=== PATIENT | male | born 1975 | race Two or more races ===

== ENCOUNTER 2020-01-07 19:58 | Inpatient (IN) | payer MEDICAID ==
[~2020-01-07] VITALS: Ht 172.7 cm; Wt 80.3 kg
[2020-01-07] MEDS ORDERED: Adenosine 6mg/2ml Inj ONE ×3 (20:10→20:18)
[2020-01-07 20:15] VITALS: BP_SYST 107; BP_SYST 95; BP_DIAS 72; BP_DIAS 75
--- NOTE | 2020-01-07 20:15 | NUR ---
ED Nurse Note: patient ambulated with c/o chest pain radiating to throat x 1944. ekg at triage svt at 191. hx of mi. denies stents or meds. pt brought in to room, placed on cardioversion pads, ERMD at bedside, ekg done showing SVT, Dilshad contreras inserting IV into L AC
--- NOTE | 2020-01-07 20:20 | NUR ---
ED Nurse Note: Pt given 6mg, 12mg then another 12mg adenosine IV push per ERMD order. BP 95/72, HR 182 at 2024 pt given 10mg etomidate per ERMD order then cardioverted x1, pt tolerated well, 127/79 bp, rr 13 SPO2 98% ON ra, hr 100
[2020-01-07 20:44] LABS: BASOPHILS % (AUTO) 1.1 % (0.0-2.0); EOSINOPHILS % (AUTO) 4.3 % (0.0-3.0); HEMATOCRIT 48.3 % (42.0-52.0); LYMPHOCYTES % (AUTO) 43.9 % (20.0-45.0); MEAN CORPUSCULAR VOLUME 93 FL (80-99); MONOCYTES % (AUTO) 9.5 % (1.0-10.0); NEUTROPHILS % (AUTO) 41.2 % (45.0-75.0); PLATELET COUNT 283 K/UL (150-450); RED BLOOD COUNT 5.22 M/UL (4.70-6.10); RED CELL DISTRIBUTION WIDTH 11.4 % (11.6-14.8); WHITE BLOOD COUNT 10.8 K/UL (4.8-10.8)
[2020-01-07] MEDS ORDERED: Adenosine 6mg/2ml Inj IVP ONE ×3 (20:45)
[2020-01-07] MEDS ORDERED: Etomidate 40mg/20ml Inj IV ONE (20:45)
--- NOTE | 2020-01-07 20:59 | Emergency Room Report ---
History of Present Illness General Chief Complaint: Chest Pain Source: Patient, Family Member Present Illness HPI Disclaimer: Please note that this report is being documented using DRAGON technology. This can lead to erroneous entry secondary to incorrect interpretation by the dictating instrument. HPI: 44-year-old male history of RI and hypertension presents for evaluation of chest pain. Symptoms began abruptly at 7:30 PM while he was at rest. Notes a tightness over the chest and shortness of breath. Denies loss of conscious. No diaphoresis, no vomiting. Was in his usual state of health prior to today. He has been compliant with his medications. Denies any alcohol or drug use. Patient found to be in supraventricular tachycardia on triage with a heart rate greater than 190. Taken to her room and immediately evaluated by me and nursing staff. PMH: RI, hypertension PSH: Reviewed Allergies: Denied Social Hx: Denied Allergies: Coded Allergies: No Known Allergies (Unverified , 01/07/20) Nursing Documentation-PMH Past Medical History: No History, Except For Review of Systems All Other Systems: negative except mentioned in HPI Physical Exam Vital Signs Date Time Temp Pulse Resp B/P (MAP) Pulse Ox O2 Delivery O2 Flow Rate FiO2 01/07/20 20:12 97.9 191 26 107/75 (86) 99 Room Air General: Awake and alert, uncomfortable HEENT: NC/AT. EOMI. Cardiovascular: Very tachycardic. S1 and S2 normal. No murmur appreciated Resp: Normal work of breathing. No cough, wheezing or crackles appreciated Abdomen: Abdomen is soft, nondistended. Nontender Skin: Intact. No abrasions, laceration or rash over the exposed skin MSK: Normal tone and bulk. Moving all extremities. No obvious deformity. Neuro: Awake and alert. Mentating appropriately. Procedures Critical Care Time Critical Care Time Total critical care time: Approximately 45 minutes Due to a high probability of clinically significant, life threatening deterioration, the patient required the highest level of preparedness to intervene emergently and I personally spent this critical care time directly and personally managing the patient. This critical care time included obtaining a history, examining the patient, pulse oximetry, ordering and reviewing studies , ordering treatments, evaluating response to treatment and updating management plan as needed, frequent reassessment and discussion with other providers as well as arranging for ultimate disposition. This critical to care time was performed to assess and manage the high probability of life-threatening deterioration that could result in multiorgan failure. This critical care time is separate from the separately billable procedures and treating other patients. Cardioversion Cardioversion: Consent: Emergent Indication: SVT Type: Synchonis Response: Sinus Attempts: One Patient Tolerated: Well Complications: None Procedural Sedation Consent: Emergent Time out called at: 20:21 Pre-Sedation Assessment: Eval. Immed. Prior to Sed, Plan for Sedation Discuss Airway Assessment (Malampati): I Heart: normal Lungs: normal Procedures/Plans: Cardioversion Plan for Moderate Sedation: Other - Etomidate 10 mg ASA Score: I Start Time: 20:21 End Time: 20:24 Post-Sedation Assessment Achieved appropriate procedural sedation with 10 mg of etomidate. Total sedation time approximately 3 minutes. Sedation was for cardioversion indication SVT. Tolerated the procedure well. No hypotension, no hypoxia. Patient was somnolent but arousable after sedation and had full recovery within 10 minutes. Communication: No Apparent Limitation Mental Status: Awake Respiration: Unlabored Skin Condition: WNL Medical Decision Making Diagnostic Impression: Primary Impression: SVT (supraventricular tachycardia) Additional Impression: Amphetamine abuse ER Course This a 44-year-old male with history of RI presenting for evaluation of chest pain beginning abruptly 1 hour prior to arrival. Patient arrives in narrow complex tachycardia with a heart rate greater than 190 consistent with SVT. Initial pressures were stable in the 110 systolic. Patient was given 6 then 12 then 12 mg of adenosine without effect. Heart rate was declining to the mid 90s. Patient was sedated with etomidate and underwent synchronized cardioversion at 120 J with successful conversion to sinus rhythm. Tolerated sedation well is now awake and alert. Chest pain is improving. Blood pressure improved. Labs and x-rays pending. Patient will require admission for further cardiology evaluation. Laboratory Tests Test 01/07/20 20:00 01/07/20 21:35 White Blood Count 10.8 K/UL (4.8-10.8) Red Blood Count 5.22 M/UL (4.70-6.10) Hemoglobin 17.0 G/DL (14.2-18.0) Hematocrit 48.3 % (42.0-52.0) Mean Corpuscular Volume 93 FL (80-99) Mean Corpuscular Hemoglobin 32.6 PG (27.0-31.0) H Mean Corpuscular Hemoglobin Concent 35.3 G/DL (32.0-36.0) Red Cell Distribution Width 11.4 % (11.6-14.8) L Platelet Count 283 K/UL (150-450) Mean Platelet Volume 6.5 FL (6.5-10.1) Neutrophils (%) (Auto) 41.2 % (45.0-75.0) L Lymphocytes (%) (Auto) 43.9 % (20.0-45.0) Monocytes (%) (Auto) 9.5 % (1.0-10.0) Eosinophils (%) (Auto) 4.3 % (0.0-3.0) H Basophils (%) (Auto) 1.1 % (0.0-2.0) Prothrombin Time 9.8 SEC (9.30-11.50) Prothrombin Time INR 0.9 (0.9-1.1) Activated Partial Thromboplast Time 27 SEC (23-33) Sodium Level 142 MMOL/L (136-145) Potassium Level 3.6 MMOL/L (3.5-5.1) Chloride Level 103 MMOL/L (98-107) Carbon Dioxide Level 26 MMOL/L (21-32) Anion Gap 13 mmol/L (5-15) Blood Urea Nitrogen 13 mg/dL (7-18) Creatinine 1.0 MG/DL (0.55-1.30) Estimate Glomerular Filtration Rate > 60 mL/min (>60) Glucose Level 134 MG/DL (74-106) H Calcium Level 9.4 MG/DL (8.5-10.1) Total Bilirubin 0.3 MG/DL (0.2-1.0) Aspartate Amino Transferase (AST) 24 U/L (15-37) Alanine Aminotransferase (ALT) 35 U/L (12-78) Alkaline Phosphatase 87 U/L (46-116) Total Creatine Kinase 205 U/L (26-308) Creatine Kinase MB 2.7 NG/ML (0.0-3.6) Creatine Kinase MB Relative Index 1.3 Troponin I 0.134 ng/mL (0.000-0.056) Pro-B-Type Natriuretic Peptide 919 pg/mL (0-125) H Total Protein 7.7 G/DL (6.4-8.2) Albumin 4.0 G/DL (3.4-5.0) Globulin 3.7 g/dL Albumin/Globulin Ratio 1.1 (1.0-2.7) Urine Color Pale yellow Urine Appearance Clear Urine pH 6 (4.5-8.0) Urine Specific [place] 1.010 (1.005-1.035) Urine Protein 1+ (NEGATIVE) H Urine Glucose (UA) Negative (NEGATIVE) Urine Ketones Negative (NEGATIVE) Urine Blood Negative (NEGATIVE) Urine Nitrite Negative (NEGATIVE) Urine Bilirubin Negative (NEGATIVE) Urine Urobilinogen Normal MG/DL (0.0-1.0) Urine Leukocyte Esterase Negative (NEGATIVE) Urine RBC 0-2 /HPF (0 - 0) H Urine WBC 0-2 /HPF (0 - 0) Urine Squamous Epithelial Cells None /LPF (NONE/OCC) Urine Bacteria Occasional /HPF (NONE) Urine Opiates Screen Negative (NEGATIVE) Urine Barbiturates Screen Negative (NEGATIVE) Phencyclidine (PCP) Screen Negative (NEGATIVE) Urine Amphetamines Screen Positive (NEGATIVE) H Urine Benzodiazepines Screen Negative (NEGATIVE) Urine Cocaine Screen Negative (NEGATIVE) Urine Marijuana (THC) Screen Negative (NEGATIVE) EKG Diagnostic Results EKG Time: 20:07 Rate: tachycardiac Other Impression Narrow complex tachycardia with heart rate 194. Consistent with SVT ASA given to the pt in ED: Yes Rhythm Strip Diag. Results Rhythm Strip Time: 20:07 EP Interpretation: yes Rate: 190s Chest X-Ray Diagnostic Results Chest X-Ray Diagnostic Results : Chest X-Ray Ordered: Yes # of Views/Limited/Complete: 1 View Indication: Chest Pain EP Interpretation: Yes Interpretation: no consolidation, no effusion, no pneumothorax, no acute cardiopulmonary disease Impression: No acute disease Electronically Signed by: Electronically signed by Dr. Scot Carlton Reevaluation Time: 23:13 Last Vital Signs Date Time Temp Pulse Resp B/P (MAP) Pulse Ox O2 Delivery O2 Flow Rate FiO2 01/07/20 20:41 182 01/07/20 20:12 97.9 26 107/75 (86) 99 Room Air Reevaluation Impression Patient recovering well from his sedation and cardioversion. Labs show a slight elevation in his troponin which is expected after his prolonged episode of SVT. He was given aspirin. Patient is also tested positive for amphetamines. Other labs are within normal limits. Patient will be admitted to the ICU for further management. Discussed with cardiology who recommends loading with 0.5 mg digoxin which we will order in the emergency department. Disposition: HOME, SELF-CARE Condition: Serious Scot Carlton MD Jan 07, 2020 20:59
[2020-01-07 21:01] LABS: INR 0.9 (0.9-1.1)
[2020-01-07 21:10] LABS: ANION GAP 13 mmol/L (5-15); BLOOD UREA NITROGEN 13 mg/dL (7-18); CALCIUM 9.4 MG/DL (8.5-10.1); CARBON DIOXIDE 26 MMOL/L (21-32); CHLORIDE 103 MMOL/L (98-107); POTASSIUM 3.6 MMOL/L (3.5-5.1); SODIUM 142 MMOL/L (136-145)
[2020-01-07 21:26] LABS: ALANINE AMINOTRANSFERASE 35 U/L (12-78); ALBUMIN/GLOBULIN RATIO 1.1 (1.0-2.7); ALKALINE PHOSPHATASE 87 U/L (46-116); ASPARTATE AMINO TRANSFERASE 24 U/L (15-37); BILIRUBIN,TOTAL 0.3 MG/DL (0.2-1.0); CKMB 2.7 NG/ML (0.0-3.6); CREATINE KINASE 205 U/L (26-308)
[2020-01-07 21:30] VITALS: BP 104/78
[2020-01-07] MEDS ORDERED: Aspirin Baby 81mg ORAL ONE (22:00)
[2020-01-07 22:45] VITALS: BP 103/77
[2020-01-07] MEDS ORDERED: Digoxin 0.5mg/2ml Inj IVP ONE (22:45)
[2020-01-07 22:54] LABS: APPEARANCE,URINE CLEAR; BILIRUBIN, URINE NEGATIVE (NEGATIVE); COLOR,URINE PALE YELLOW; GLUCOSE, URINE (UA) NEGATIVE (NEGATIVE); KETONES,URINE NEGATIVE (NEGATIVE); LEUKOCYTE ESTERASE ,URINE NEGATIVE (NEGATIVE); NITRITE,URINE NEGATIVE (NEGATIVE); PH,URINE 6 (4.5-8.0); PROTEIN,URINE 1+ (NEGATIVE); UROBILINOGEN,URINE NORMAL MG/DL (0.0-1.0)
[2020-01-07] MEDS ORDERED: ASPIR 8181 MG ORAL (23:10)
--- NOTE | 2020-01-07 23:35 | NUR ---
TRANSFER TO FLOOR: Patient transferred to as ordered, per Dr Novoa. Report given to LANIE Doss. Belongings and medications given to . Family and or S/O informed of transfer.
--- NOTE | 2020-01-07 23:40 | NUR ---
NURSE NOTES: Received pt from ER with Dx SVT, post cardioverted in ER and Adenosine meds been given. CONNECTED TO C MONITOR which showed NSR Bp 99/68, afebrile. 02 sat 98% with room air . heplock left ac patent to flushes and with good blood return. pt was sleepy NO CP nor SOB noted. Relatives at bedside, explained ICU protocol and set up, verbalized understanding.Skin is intact. Will call Dr Novoa for orders.
[2020-01-07 23:45] VITALS: BP 99/68
[2020-01-08] VITALS (22 sets, daily range): BP systolic 80–111; BP diastolic 51–84
--- NOTE | 2020-01-08 00:06 | NUR ---
NURSE NOTES: called Dr Novoa with admission orders , spoke to Dr Hernandez and relayed pts condition , lab reports and vital signs. Md verbalized ,he will put admission orders
[2020-01-08] MEDS ORDERED: Miralax 17gm pkt ORAL PRN (00:15)
[2020-01-08] MEDS ORDERED: Milk of Magnesia 30ml Ud ORAL PRN (00:15)
--- NOTE | 2020-01-08 01:37 | NUR ---
NURSE NOTES: called Dr Hernandez with trending up Troponin 0.188 left messsage to answering service Nancy
--- NOTE | 2020-01-08 02:00 | NUR ---
NURSE NOTES: Spoke to Dr khanna and was aware with pts trending up troponin.
--- NOTE | 2020-01-08 04:00 | NUR ---
NURSE NOTES: Dr khanna was here and evaluated pt. No orders given.
[2020-01-08] MEDS: Heparin 5000 units/ml inj SUBQ SCH ×3 (06:14→22:55)
--- NOTE | 2020-01-08 06:57 | NUR ---
NURSE NOTES: still asleep, No chest pain noted , refused bath this am,vss
--- NOTE | 2020-01-08 07:19 | NUR ---
HAND-OFF: Report given to Macey DELA CRUZ.
--- NOTE | 2020-01-08 07:20 | NUR ---
NURSE NOTES: Received patient from LANIE Doss. Patient admitted to ICU post SVT treated in ER. Patient vital signs stable at this time. BP 101/70, HR 88, SpO2 96% on room air, and RR 16. Patient denies pain or distress at this time. Patient reports exhaustion. Patient alert and oriented to name, place, person, and time. Patient showing sinus rhythm on the ekg monitor tech at this time. Patient has left antecubital 18 gauge peripheral IV that is patent, asymptomatic, and running normal saline at 50mL/hr at this time. Patient skin intact. Patient ambulates to the restroom and has urinal at the bedside. Patient has troponin of 0.188. MD aware. Troponin level is to be checked again this morning. Will follow up with result and notify MD if applicable. Patient bed in low position with bed alarm on and call light in reach at this time. Oral care supplies offered and breakfast tray placed at the bedside. Will continue to monitor.
--- NOTE | 2020-01-08 08:59 | NUR ---
NURSE NOTES: Left message for Dr Novoa group to report critical value of troponin of 0.236. Awaiting call back.
[2020-01-08] MEDS: Docusate 100mg cap ORAL SCH ×2 (09:00→20:45)
--- NOTE | 2020-01-08 09:23 | NUR ---
NURSE NOTES: Received call back from Dr Smart and notified him of troponin level of 0.236. Patient denies chest pain. No new orders received. Received notification that Dr fuentes is now on the case. Called and left message for Dr Fuentes regarding troponin level trending up. Addendum: 01/08/20 at 1104 by Macey Sutherland RN Received call back from Dr Fuentes at 0924. Received order for Stat ECG and 2D echo. Notified Dr Fuentes that 2D echo was performed this morning but result not available dinorah. ECG performed at this time and result relayed to Dr Fuentes. No new orders received.
[2020-01-08] MEDS: Aspirin Baby 81mg ORAL SCH (09:58)
--- NOTE | 2020-01-08 10:28 | Diagnostic Imaging Report ---
Indication: Chest pain Technique: One view of the chest Comparison: none Findings: The heart size is upper limits of normal. There is equivocal minimal pulmonary venous congestion. Lungs and pleural spaces are otherwise clear. There are overlying defibrillator paddles Impression: Equivocal minimal interstitial congestion. Correlate with clinical findings
--- NOTE | 2020-01-08 11:16 | NUR ---
Social Work This Sw received a consult due to substance abuse. 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 Patient denied any SI/HI or depression/anxiety. Patient admitted to taking "uppers (pills)" in order to stay awake three-four times per week. Patient had been hospitalized last August-2018 for the same reason as this one. Patient showing awareness to the health risks involved, stating that he over-took them (taking two at time). Spouse at bedside, explains she has encouraged patient to discontinue using them. Substance abuse resources/meetings provided to patient. Patient expressing he does not feel he requires any further counseling, but planning to discontinue one of his jobs. Patient identifying he is not working for the financial gain, but stating that he believes he has a "work addiction." Spouse working and providing additional income. Therefore, they both express no other financial burdens at this time (their children are all grown, not living at home and financially independent as well). Supportive counseling provided to patient and spouse. No other needs/concerns present at this time.
--- NOTE | 2020-01-08 12:00 | NUR ---
NURSE NOTES: Patient vital signs remain stable at this time. Patient denies pain or distress at this time. Remains oriented to name, place, person, and time. Sinus rhythm on the hall monitor at this time. Left antecubital 18 gauge peripheral IV remains patent, asymptomatic, and running normal saline at 50mL/hr at this time. Patient has troponin of 0.236. MD aware. Repeat ordered for 1400. Will follow up. Patient bed in low position with bed alarm on and call light in reach at this time. Bed straightened up at this time while patient in the restroom. Will continue to monitor.
--- NOTE | 2020-01-08 12:29 | Pulmonolgy Critical Care Note ---
Critical Care - Asmt/Plan Problems: (1) SVT (supraventricular tachycardia) Assessment & Plan: S/P CV 01/07/20 ---> NSR (2) Chest pain (3) NSTEMI (non-ST elevated myocardial infarction) Assessment & Plan: Per pt h/o CAD, previously refused cardiac catheterization (4) Amphetamine abuse Assessment & Plan: Per pt uses upper pills (on IV, no nasal) (5) Tobacco use Assessment & Plan: / PPD Respiratory: monitor respiratory rate Cardiac: continue to monitor HR/BP, other - F/U TTE, trend trops, ASA, statin, F/U cards/EPS recs, ? transfer to cath center Renal: F/U I&O, keep IV fluid Infectious Disease: other - observe off Abx Gastrointestinal: other - Cardiac diet Endocrine: monitor blood sugar Hematologic: monitor H/H Neurologic: keep patient comfortable - Monitor MS Affect: other - Monitor for amphetamind w/draw, consider psych and SW eval Prophylaxis: Heparin - SQ Disposition: keep in ICU - until seen by cards Time Spent (Minutes): 40 Notes Reviewed: other - ER Discussed with: nurses, family member Critical Care - Objective Last 24 Hour Vital Signs Date Time Temp Pulse Resp B/P (MAP) Pulse Ox O2 Delivery O2 Flow Rate FiO2 01/08/20 11:00 74 22 100/69 (79) 96 01/08/20 10:00 94 21 103/64 (77) 98 01/08/20 09:00 74 14 99/68 (78) 97 01/08/20 08:00 97.7 72 17 107/65 (79) 96 01/08/20 08:00 Room Air 01/08/20 08:00 72 01/08/20 07:00 69 13 101/70 (80) 98 01/08/20 04:00 71 01/08/20 04:00 68 01/08/20 04:00 Room Air 01/08/20 00:00 Room Air 01/08/20 00:00 73 01/08/20 00:00 Room Air 01/07/20 23:35 98.1 88 18 103/77 98 Room Air 01/07/20 22:50 77 01/07/20 22:45 98.1 88 18 103/77 98 Room Air 01/07/20 21:30 97.9 89 18 104/78 99 Room Air 01/07/20 20:41 182 01/07/20 20:39 175 01/07/20 20:38 179 01/07/20 20:15 97.9 191 26 107/75 99 Room Air 01/07/20 20:15 191 26 Room Air 01/07/20 20:15 97.9 91 24 98 Room Air 191 97 89 99 90 99 92 01/07/20 20:12 97.9 191 26 107/75 (86) 99 Room Air Status: awake Condition: improving HEENT: atraumatic, normocephalic Lungs: clear Heart: HR/BP stable Abdomen: soft, non-tender, active bowel sounds Extremities: no C/C/E Blood Sugars: BS controlled Critical Care - Subjective ROS Limited/Unobtainable: Yes ICU Day: 2 Intubation Day: N/A Interval Events: 44 M h/o HTN, CAD, prior AL, drug abuse a/w CP, noted to be in SVT in ER S/P CV ---> NSR Utox + amphetamine, CXR with PVC PMH: HTN, CAD (refused angio in the past) PSH: Appy SHx: + 1/2 PPD, no EtOH, uses street amphetamines (pills only per pt) FHx: + CAD Condition: critical IV Access: peripheral EKG Rhythm: Sinus Rhythm FI02: 21 Fluids: NS@50 I&O: Intake and Output 01/07/20 01/08/20 19:00 07:00 Intake Total 250 ml Output Total 0 ml Balance 250 ml Intake Oral 0 ml IV Total 250 ml Output Urine Total 0 ml Subjective: States he is doing better today, no further CP, no FC, no cough, no wheezing, no ADAMS, no dizziness, no NVDC, no abd pain, no urinary complaints CXR: NAD mild PVC Labs: Laboratory Tests Test 01/07/20 20:00 01/07/20 21:35 01/08/20 00:50 01/08/20 07:01 White Blood Count 10.8 K/UL (4.8-10.8) Red Blood Count 5.22 M/UL (4.70-6.10) Hemoglobin 17.0 G/DL (14.2-18.0) Hematocrit 48.3 % (42.0-52.0) Mean Corpuscular Volume 93 FL (80-99) Mean Corpuscular Hemoglobin 32.6 PG (27.0-31.0) H Mean Corpuscular Hemoglobin Concent 35.3 G/DL (32.0-36.0) Red Cell Distribution Width 11.4 % (11.6-14.8) L Platelet Count 283 K/UL (150-450) Mean Platelet Volume 6.5 FL (6.5-10.1) Neutrophils (%) (Auto) 41.2 % (45.0-75.0) L Lymphocytes (%) (Auto) 43.9 % (20.0-45.0) Monocytes (%) (Auto) 9.5 % (1.0-10.0) Eosinophils (%) (Auto) 4.3 % (0.0-3.0) H Basophils (%) (Auto) 1.1 % (0.0-2.0) Prothrombin Time 9.8 SEC (9.30-11.50) Prothromb Time International Ratio 0.9 (0.9-1.1) Activated Partial Thromboplast Time 27 SEC (23-33) Sodium Level 142 MMOL/L (136-145) Potassium Level 3.6 MMOL/L (3.5-5.1) Chloride Level 103 MMOL/L (98-107) Carbon Dioxide Level 26 MMOL/L (21-32) Anion Gap 13 mmol/L (5-15) Blood Urea Nitrogen 13 mg/dL (7-18) Creatinine 1.0 MG/DL (0.55-1.30) Estimat Glomerular Filtration Rate > 60 mL/min (>60) Glucose Level 134 MG/DL (74-106) H Calcium Level 9.4 MG/DL (8.5-10.1) Total Bilirubin 0.3 MG/DL (0.2-1.0) Aspartate Amino Transf (AST/SGOT) 24 U/L (15-37) Alanine Aminotransferase (ALT/SGPT) 35 U/L (12-78) Alkaline Phosphatase 87 U/L (46-116) Total Creatine Kinase 205 U/L (26-308) Creatine Kinase MB 2.7 NG/ML (0.0-3.6) Creatine Kinase MB Relative Index 1.3 Troponin I 0.134 ng/mL (0.000-0.056) 0.188 ng/mL (0.000-0.056) 0.236 ng/mL (0.000-0.056) Pro-B-Type Natriuretic Peptide 919 pg/mL (0-125) H Total Protein 7.7 G/DL (6.4-8.2) Albumin 4.0 G/DL (3.4-5.0) Globulin 3.7 g/dL Albumin/Globulin Ratio 1.1 (1.0-2.7) Urine Color Pale yellow Urine Appearance Clear Urine pH 6 (4.5-8.0) Urine Specific [place] 1.010 (1.005-1.035) Urine Protein 1+ (NEGATIVE) H Urine Glucose (UA) Negative (NEGATIVE) Urine Ketones Negative (NEGATIVE) Urine Blood Negative (NEGATIVE) Urine Nitrite Negative (NEGATIVE) Urine Bilirubin Negative (NEGATIVE) Urine Urobilinogen Normal MG/DL (0.0-1.0) Urine Leukocyte Esterase Negative (NEGATIVE) Urine RBC 0-2 /HPF (0 - 0) H Urine WBC 0-2 /HPF (0 - 0) Urine Squamous Epithelial Cells None /LPF (NONE/OCC) Urine Bacteria Occasional /HPF (NONE) Urine Opiates Screen Negative (NEGATIVE) Urine Barbiturates Screen Negative (NEGATIVE) Phencyclidine (PCP) Screen Negative (NEGATIVE) Urine Amphetamines Screen Positive (NEGATIVE) H Urine Benzodiazepines Screen Negative (NEGATIVE) Urine Cocaine Screen Negative (NEGATIVE) Urine Marijuana (THC) Screen Negative (NEGATIVE) Hemoglobin A1c 5.6 % (4.3-6.0) Parvez Conti MD Jan 08, 2020 12:29
--- NOTE | 2020-01-08 13:50 | Cardiac Electrophysiology PN ---
Subjective Subjective [id number] Objective Last 24 Hour Vital Signs Date Time Temp Pulse Resp B/P (MAP) Pulse Ox O2 Delivery O2 Flow Rate FiO2 01/08/20 12:29 21 01/08/20 12:00 72 18 95/66 (76) 96 01/08/20 12:00 66 01/08/20 11:00 74 22 100/69 (79) 96 01/08/20 10:00 94 21 103/64 (77) 98 01/08/20 09:00 74 14 99/68 (78) 97 01/08/20 08:00 97.7 72 17 107/65 (79) 96 01/08/20 08:00 Room Air 01/08/20 08:00 72 01/08/20 07:00 69 13 101/70 (80) 98 01/08/20 04:00 71 01/08/20 04:00 68 01/08/20 04:00 Room Air 01/08/20 00:00 Room Air 01/08/20 00:00 73 01/08/20 00:00 Room Air 01/07/20 23:35 98.1 88 18 103/77 98 Room Air 01/07/20 22:50 77 01/07/20 22:45 98.1 88 18 103/77 98 Room Air 01/07/20 21:30 97.9 89 18 104/78 99 Room Air 01/07/20 20:41 182 01/07/20 20:39 175 01/07/20 20:38 179 01/07/20 20:15 97.9 191 26 107/75 99 Room Air 01/07/20 20:15 191 26 Room Air 01/07/20 20:15 97.9 91 24 98 Room Air 191 97 89 99 90 99 92 01/07/20 20:12 97.9 191 26 107/75 (86) 99 Room Air Intake and Output 01/07/20 01/08/20 19:00 07:00 Intake Total 250 ml Output Total 0 ml Balance 250 ml Intake Oral 0 ml IV Total 250 ml Output Urine Total 0 ml Laboratory Tests Test 01/07/20 20:00 01/07/20 21:35 01/08/20 00:50 01/08/20 07:01 White Blood Count 10.8 K/UL (4.8-10.8) Red Blood Count 5.22 M/UL (4.70-6.10) Hemoglobin 17.0 G/DL (14.2-18.0) Hematocrit 48.3 % (42.0-52.0) Mean Corpuscular Volume 93 FL (80-99) Mean Corpuscular Hemoglobin 32.6 PG (27.0-31.0) H Mean Corpuscular Hemoglobin Concent 35.3 G/DL (32.0-36.0) Red Cell Distribution Width 11.4 % (11.6-14.8) L Platelet Count 283 K/UL (150-450) Mean Platelet Volume 6.5 FL (6.5-10.1) Neutrophils (%) (Auto) 41.2 % (45.0-75.0) L Lymphocytes (%) (Auto) 43.9 % (20.0-45.0) Monocytes (%) (Auto) 9.5 % (1.0-10.0) Eosinophils (%) (Auto) 4.3 % (0.0-3.0) H Basophils (%) (Auto) 1.1 % (0.0-2.0) Prothrombin Time 9.8 SEC (9.30-11.50) Prothromb Time International Ratio 0.9 (0.9-1.1) Activated Partial Thromboplast Time 27 SEC (23-33) Sodium Level 142 MMOL/L (136-145) Potassium Level 3.6 MMOL/L (3.5-5.1) Chloride Level 103 MMOL/L (98-107) Carbon Dioxide Level 26 MMOL/L (21-32) Anion Gap 13 mmol/L (5-15) Blood Urea Nitrogen 13 mg/dL (7-18) Creatinine 1.0 MG/DL (0.55-1.30) Estimat Glomerular Filtration Rate > 60 mL/min (>60) Glucose Level 134 MG/DL (74-106) H Calcium Level 9.4 MG/DL (8.5-10.1) Total Bilirubin 0.3 MG/DL (0.2-1.0) Aspartate Amino Transf (AST/SGOT) 24 U/L (15-37) Alanine Aminotransferase (ALT/SGPT) 35 U/L (12-78) Alkaline Phosphatase 87 U/L (46-116) Total Creatine Kinase 205 U/L (26-308) Creatine Kinase MB 2.7 NG/ML (0.0-3.6) Creatine Kinase MB Relative Index 1.3 Troponin I 0.134 ng/mL (0.000-0.056) 0.188 ng/mL (0.000-0.056) 0.236 ng/mL (0.000-0.056) Pro-B-Type Natriuretic Peptide 919 pg/mL (0-125) H Total Protein 7.7 G/DL (6.4-8.2) Albumin 4.0 G/DL (3.4-5.0) Globulin 3.7 g/dL Albumin/Globulin Ratio 1.1 (1.0-2.7) Urine Color Pale yellow Urine Appearance Clear Urine pH 6 (4.5-8.0) Urine Specific [place] 1.010 (1.005-1.035) Urine Protein 1+ (NEGATIVE) H Urine Glucose (UA) Negative (NEGATIVE) Urine Ketones Negative (NEGATIVE) Urine Blood Negative (NEGATIVE) Urine Nitrite Negative (NEGATIVE) Urine Bilirubin Negative (NEGATIVE) Urine Urobilinogen Normal MG/DL (0.0-1.0) Urine Leukocyte Esterase Negative (NEGATIVE) Urine RBC 0-2 /HPF (0 - 0) H Urine WBC 0-2 /HPF (0 - 0) Urine Squamous Epithelial Cells None /LPF (NONE/OCC) Urine Bacteria Occasional /HPF (NONE) Urine Opiates Screen Negative (NEGATIVE) Urine Barbiturates Screen Negative (NEGATIVE) Phencyclidine (PCP) Screen Negative (NEGATIVE) Urine Amphetamines Screen Positive (NEGATIVE) H Urine Benzodiazepines Screen Negative (NEGATIVE) Urine Cocaine Screen Negative (NEGATIVE) Urine Marijuana (THC) Screen Negative (NEGATIVE) Hemoglobin A1c 5.6 % (4.3-6.0) Test 01/08/20 12:57 Troponin I 0.213 ng/mL (0.000-0.056) Pee Burks MD Jan 08, 2020 13:50
--- NOTE | 2020-01-08 15:37 | NUR ---
NURSE NOTES: Notified Dr Burks regarding 2D echo of result via telephone call. No new orders received.
--- NOTE | 2020-01-08 16:00 | NUR ---
NURSE NOTES: Patient vital signs remain stable at this time. Patient denies pain or distress at this time. Remains oriented to name, place, person, and time. Sinus rhythm on the night monitor at this time. Left antecubital 18 gauge peripheral IV remains patent, asymptomatic, and running normal saline at 50mL/hr at this time. Patient has troponin of 0.213. MD aware. Repeat ordered for 1999. Will follow up. Patient bed in low position with bed alarm on and call light in reach at this time. Will continue to monitor.
--- NOTE | 2020-01-08 17:13 | General Progress Note ---
Subjective Allergies: Coded Allergies: No Known Allergies (Unverified , 01/07/20) Objective Last 24 Hour Vital Signs Date Time Temp Pulse Resp B/P (MAP) Pulse Ox O2 Delivery O2 Flow Rate FiO2 01/08/20 16:00 Room Air 01/08/20 16:00 97.6 71 13 101/68 (79) 97 01/08/20 16:00 78 01/08/20 15:00 73 14 108/56 (73) 97 01/08/20 14:00 87 19 111/69 (83) 97 01/08/20 13:00 97.7 68 17 108/67 (81) 97 01/08/20 12:29 21 01/08/20 12:00 Room Air 01/08/20 12:00 72 18 95/66 (76) 96 01/08/20 12:00 66 01/08/20 11:00 74 22 100/69 (79) 96 01/08/20 10:00 94 21 103/64 (77) 98 01/08/20 09:00 74 14 99/68 (78) 97 01/08/20 08:00 97.7 72 17 107/65 (79) 96 01/08/20 08:00 Room Air 01/08/20 08:00 72 01/08/20 07:00 69 13 101/70 (80) 98 01/08/20 04:00 71 01/08/20 04:00 68 01/08/20 04:00 Room Air 01/08/20 00:00 Room Air 01/08/20 00:00 73 01/08/20 00:00 Room Air 01/07/20 23:35 98.1 88 18 103/77 98 Room Air 01/07/20 22:50 77 01/07/20 22:45 98.1 88 18 103/77 98 Room Air 01/07/20 21:30 97.9 89 18 104/78 99 Room Air 01/07/20 20:41 182 01/07/20 20:39 175 01/07/20 20:38 179 01/07/20 20:15 97.9 191 26 107/75 99 Room Air 01/07/20 20:15 191 26 Room Air 01/07/20 20:15 97.9 91 24 98 Room Air 191 97 89 99 90 99 92 01/07/20 20:12 97.9 191 26 107/75 (86) 99 Room Air Intake and Output 01/07/20 01/08/20 19:00 07:00 Intake Total 250 ml Output Total 0 ml Balance 250 ml Intake Oral 0 ml IV Total 250 ml Output Urine Total 0 ml Laboratory Tests 01/07/20 20:00: White Blood Count 10.8, Red Blood Count 5.22, Hemoglobin 17.0, Hematocrit 48.3, Mean Corpuscular Volume 93, Mean Corpuscular Hemoglobin 32.6H, Mean Corpuscular Hemoglobin Concent 35.3, Red Cell Distribution Width 11.4L, Platelet Count 283, Mean Platelet Volume 6.5, Neutrophils (%) (Auto) 41.2L, Lymphocytes (%) (Auto) 43.9, Monocytes (%) (Auto) 9.5, Eosinophils (%) (Auto) 4.3H, Basophils (%) (Auto ) 1.1, Prothrombin Time 9.8, Prothromb Time International Ratio 0.9, Activated Partial Thromboplast Time 27, Sodium Level 142, Potassium Level 3.6, Chloride Level 103, Carbon Dioxide Level 26, Anion Gap 13, Blood Urea Nitrogen 13, Creatinine 1.0, Estimat Glomerular Filtration Rate > 60, Glucose Level 134H, Calcium Level 9.4, Total Bilirubin 0.3, Aspartate Amino Transf (AST/SGOT) 24, Alanine Aminotransferase (ALT/SGPT) 35, Alkaline Phosphatase 87, Total Creatine Kinase 205, Creatine Kinase MB 2.7, Creatine Kinase MB Relative Index 1.3, Troponin I 0.134H, Pro-B-Type Natriuretic Peptide 919H, Total Protein 7.7, Albumin 4.0, Globulin 3.7, Albumin/Globulin Ratio 1.1 01/07/20 21:35: Urine Color Pale yellow, Urine Appearance Clear, Urine pH 6, Urine Specific [place] 1.010, Urine Protein 1+H, Urine Glucose (UA) Negative, Urine Ketones Negative, Urine Blood Negative, Urine Nitrite Negative, Urine Bilirubin Negative , Urine Urobilinogen Normal, Urine Leukocyte Esterase Negative, Urine RBC 0-2H, Urine WBC 0-2, Urine Squamous Epithelial Cells None, Urine Bacteria Occasional, Urine Opiates Screen Negative, Urine Barbiturates Screen Negative, Phencyclidine (PCP) Screen Negative, Urine Amphetamines Screen PositiveH, Urine Benzodiazepines Screen Negative, Urine Cocaine Screen Negative, Urine Marijuana (THC) Screen Negative 2/17/20 00:50: Troponin I 0.188H 01/08/20 07:01: Troponin I 0.236H, Hemoglobin A1c 5.6 01/08/20 12:57: Troponin I 0.213H Height (Feet): 5 Height (Inches): 8.00 Weight (Pounds): 178 Mike Ordonez D.O. Jan 08, 2020 17:13
--- NOTE | 2020-01-08 17:16 | History and Physical ---
History of Present Illness General Date patient seen: Jan 08, 2020 Reason for Hospitalization: Chest Pain Present Illness HPI Is a 44-year-old male with a past medical history of substance abuse ( amphetamines), reported history of CA, HTN, coronary artery disease (patient previously refused cardiac catheterization) who presented to the ER with chest pain. Symptoms began abruptly at 7:30 PM while he was at rest. Notes a tightness over the chest and shortness of breath. Denies loss of conscious. No diaphoresis, no vomiting. Was in his usual state of health prior to today. He has been compliant with his medications. Denies any alcohol or drug use. Patient found to be in supraventricular tachycardia on triage with a heart rate greater than 190. Patient arrived in narrow complex tachycardia with a heart rate greater than 190 consistent with SVT. Initial pressures were stable in the 110 systolic. Patient was given 6 then 12 then 12 mg of adenosine without effect. Heart rate was declining to the mid 90s. Patient was sedated with etomidate and underwent synchronized cardioversion at 120 J with successful conversion to sinus rhythm. Tolerated sedation well is now awake and alert. Chest pain is improving. Blood pressure improved. CBC unremarkable initial troponin 0.188, proBNP 919. Rest of CMP unremarkable. Chest x-ray showed pulmonary edema, mild. Medicine was consulted for admission. Patient was admitted to the ICU. Allergies: None next Medications: None Past medical history: See HPI Surgical history: Appendectomy Family history Brother with CVA Dad with CA at 70 years old Social history drug use: Uppers Former drinker Denies tobacco use. Allergies: Coded Allergies: No Known Allergies (Unverified , 01/07/20) Medication History Scheduled Aspirin* (Aspir 81*), 81 MG ORAL DAILY, (Reported) Medications Narrative Patient does not take any home medications Patient History Healthcare decision maker Resuscitation status Full Code Advanced Directive on File No Review of Systems All Other Systems: negative except mentioned in HPI Physical Exam Physical Exam Narrative General: WDWN male in NAD, A&O x 4 HEENT: Normocephalic cephalic atraumatic, pupils equal round reactive to light and accommodation, nares patent and no symmetrical, no tonsillar exudates, mucous membranes moist CV: Regular rate regular rhythm, no murmurs, rubs, or gallops Pulm: Lungs clear to auscultation bilaterally. No wheezes, rhonchi, or rales GI: Soft, nontender, nondistended, bowel sounds present Neuro: CN 2-12 intact bilaterally, no focal signs. Ext: No lower extremity edema bilaterally Skin: no rashes lesions or ulcers Msk: Joints symmetrical in upper extremity and lower extremity bilaterally, no joint swelling. Lymph: No lymphadenopathy in upper extremity and lower extremity Last 24 Hour Vital Signs Date Time Temp Pulse Resp B/P (MAP) Pulse Ox O2 Delivery O2 Flow Rate FiO2 01/08/20 17:00 82 14 111/71 (84) 97 01/08/20 16:00 Room Air 01/08/20 16:00 97.6 71 13 101/68 (79) 97 01/08/20 16:00 78 01/08/20 15:00 73 14 108/56 (73) 97 01/08/20 14:00 87 19 111/69 (83) 97 01/08/20 13:00 97.7 68 17 108/67 (81) 97 01/08/20 12:29 21 01/08/20 12:00 Room Air 01/08/20 12:00 72 18 95/66 (76) 96 01/08/20 12:00 66 01/08/20 11:00 74 22 100/69 (79) 96 01/08/20 10:00 94 21 103/64 (77) 98 01/08/20 09:00 74 14 99/68 (78) 97 01/08/20 08:00 97.7 72 17 107/65 (79) 96 01/08/20 08:00 Room Air 01/08/20 08:00 72 01/08/20 07:00 69 13 101/70 (80) 98 01/08/20 04:00 71 01/08/20 04:00 68 01/08/20 04:00 Room Air 01/08/20 00:00 Room Air 01/08/20 00:00 73 01/08/20 00:00 Room Air 01/07/20 23:35 98.1 88 18 103/77 98 Room Air 01/07/20 22:50 77 01/07/20 22:45 98.1 88 18 103/77 98 Room Air 01/07/20 21:30 97.9 89 18 104/78 99 Room Air 01/07/20 20:41 182 2/16/20 20:39 175 01/07/20 20:38 179 01/07/20 20:15 97.9 191 26 107/75 99 Room Air 01/07/20 20:15 191 26 Room Air 01/07/20 20:15 97.9 91 24 98 Room Air 191 97 89 99 90 99 92 01/07/20 20:12 97.9 191 26 107/75 (86) 99 Room Air Intake and Output 01/07/20 01/08/20 19:00 07:00 Intake Total 250 ml Output Total 0 ml Balance 250 ml Intake Oral 0 ml IV Total 250 ml Output Urine Total 0 ml Laboratory Tests Test 01/07/20 20:00 01/07/20 21:35 01/08/20 00:50 01/08/20 07:01 White Blood Count 10.8 K/UL (4.8-10.8) Red Blood Count 5.22 M/UL (4.70-6.10) Hemoglobin 17.0 G/DL (14.2-18.0) Hematocrit 48.3 % (42.0-52.0) Mean Corpuscular Volume 93 FL (80-99) Mean Corpuscular Hemoglobin 32.6 PG (27.0-31.0) H Mean Corpuscular Hemoglobin Concent 35.3 G/DL (32.0-36.0) Red Cell Distribution Width 11.4 % (11.6-14.8) L Platelet Count 283 K/UL (150-450) Mean Platelet Volume 6.5 FL (6.5-10.1) Neutrophils (%) (Auto) 41.2 % (45.0-75.0) L Lymphocytes (%) (Auto) 43.9 % (20.0-45.0) Monocytes (%) (Auto) 9.5 % (1.0-10.0) Eosinophils (%) (Auto) 4.3 % (0.0-3.0) H Basophils (%) (Auto) 1.1 % (0.0-2.0) Prothrombin Time 9.8 SEC (9.30-11.50) Prothromb Time International Ratio 0.9 (0.9-1.1) Activated Partial Thromboplast Time 27 SEC (23-33) Sodium Level 142 MMOL/L (136-145) Potassium Level 3.6 MMOL/L (3.5-5.1) Chloride Level 103 MMOL/L (98-107) Carbon Dioxide Level 26 MMOL/L (21-32) Anion Gap 13 mmol/L (5-15) Blood Urea Nitrogen 13 mg/dL (7-18) Creatinine 1.0 MG/DL (0.55-1.30) Estimat Glomerular Filtration Rate > 60 mL/min (>60) Glucose Level 134 MG/DL (74-106) H Calcium Level 9.4 MG/DL (8.5-10.1) Total Bilirubin 0.3 MG/DL (0.2-1.0) Aspartate Amino Transf (AST/SGOT) 24 U/L (15-37) Alanine Aminotransferase (ALT/SGPT) 35 U/L (12-78) Alkaline Phosphatase 87 U/L (46-116) Total Creatine Kinase 205 U/L (26-308) Creatine Kinase MB 2.7 NG/ML (0.0-3.6) Creatine Kinase MB Relative Index 1.3 Troponin I 0.134 ng/mL (0.000-0.056) 0.188 ng/mL (0.000-0.056) 0.236 ng/mL (0.000-0.056) Pro-B-Type Natriuretic Peptide 919 pg/mL (0-125) H Total Protein 7.7 G/DL (6.4-8.2) Albumin 4.0 G/DL (3.4-5.0) Globulin 3.7 g/dL Albumin/Globulin Ratio 1.1 (1.0-2.7) Urine Color Pale yellow Urine Appearance Clear Urine pH 6 (4.5-8.0) Urine Specific [place] 1.010 (1.005-1.035) Urine Protein 1+ (NEGATIVE) H Urine Glucose (UA) Negative (NEGATIVE) Urine Ketones Negative (NEGATIVE) Urine Blood Negative (NEGATIVE) Urine Nitrite Negative (NEGATIVE) Urine Bilirubin Negative (NEGATIVE) Urine Urobilinogen Normal MG/DL (0.0-1.0) Urine Leukocyte Esterase Negative (NEGATIVE) Urine RBC 0-2 /HPF (0 - 0) H Urine WBC 0-2 /HPF (0 - 0) Urine Squamous Epithelial Cells None /LPF (NONE/OCC) Urine Bacteria Occasional /HPF (NONE) Urine Opiates Screen Negative (NEGATIVE) Urine Barbiturates Screen Negative (NEGATIVE) Phencyclidine (PCP) Screen Negative (NEGATIVE) Urine Amphetamines Screen Positive (NEGATIVE) H Urine Benzodiazepines Screen Negative (NEGATIVE) Urine Cocaine Screen Negative (NEGATIVE) Urine Marijuana (THC) Screen Negative (NEGATIVE) Hemoglobin A1c 5.6 % (4.3-6.0) Test 01/08/20 12:57 Troponin I 0.213 ng/mL (0.000-0.056) Height (Feet): 5 Height (Inches): 8.00 Weight (Pounds): 178 Medications Current Medications Medications (Trade) Dose Ordered Sig/Elaine Route PRN Reason Start Time Stop Time Status Last Admin Dose Admin Aspirin (ASA) 81 mg DAILY ORAL 01/08/20 09:00 02/07/20 08:59 01/08/20 09:58 Atorvastatin Calcium (Lipitor) 80 mg BEDTIME ORAL 01/08/20 21:00 02/07/20 20:59 Bisacodyl (Dulcolax) 10 mg DAILYPRN PRN RECTAL Constipation 01/08/20 00:15 02/07/20 00:14 Dextrose (Dextrose 50%) 25 ml Q30M PRN IV Hypoglycemia 01/08/20 00:15 02/07/20 00:14 Dextrose (Dextrose 50%) 50 ml Q30M PRN IV Hypoglycemia 01/08/20 00:15 02/07/20 00:14 Digoxin (Lanoxin) 0.25 mg DAILY ORAL 01/09/20 09:00 02/08/20 08:59 Docusate Sodium (Colace) 100 mg EVERY 12 HOURS ORAL 01/08/20 09:00 02/07/20 08:59 Heparin Sodium (Porcine) (Heparin 5000 units/ml) 5,000 units EVERY 8 HOURS SUBQ 01/08/20 06:00 02/07/20 05:59 01/08/20 14:38 Magnesium Hydroxide (Mom) 30 ml HSPRN PRN ORAL Constipation 01/08/20 00:15 02/07/20 00:14 Metoprolol Tartrate (Lopressor) 50 mg Q12HR ORAL 01/08/20 21:00 02/07/20 20:59 Polyethylene Glycol (Miralax) 17 gm DAILYPRN PRN ORAL Constipation 01/08/20 00:15 02/07/20 00:14 Potassium Chloride (K-Dur) 40 meq DAILY ORAL 01/08/20 09:00 02/07/20 08:59 01/08/20 09:57 Prochlorperazine (Compazine) 10 mg Q6H PRN IVP Nausea & Vomiting 01/08/20 00:15 02/07/20 00:14 Sodium Chloride 1,000 ml @ 50 mls/hr Q20H IVLG 01/08/20 01:14 02/07/20 01:13 01/08/20 02:10 Assessment/Plan Assessment/Plan: Is a 44-year-old male with a past medical history of CA presenting with SVT status post cardioversion now in normal sinus rhythm. #Supraventricular tachycardia, unstable. Likely secondary to underlying CAD and amphetamine abuse. Status post cardioversion with return to normal sinus rhythm #Spectated coronary artery disease. EKG showing diffuse T wave inversions. No STEMI or NSTEMi per cardiology #History of CA -Appreciate cardiology consultation: Dr. Burks -Appreciate Pulm/Crit consultation: Dr. Conti -Patient will need cardiac cath. Currently evaluating options available given patient's lack of insurance -Aspirin -Statin -No heparin drip per cardiology -Formal 2D echocardiogram -NS 50 cc an hour -Telemetry -Lipid panel, A1c #Amphetamine abuse -Social work consult -Appreciate psychiatry recommendations DVT ppx: Heparin SQ Code status: rag willow operator of my involvement, the patient's condition was critical with high potential for and/or physiologic deterioration secondary to unstable SVT as delineated in the note above. On the above date of service, I spent a total of 39 minutes in the ICU evaluating, managing, and providing critical care services to this patient, including time spent documenting these activities, counseling patient/family, and coordinating care. Critical care services performed include: -Telemetry review -Hemodynamic measurement interpretation -Laboratory data review and interpretation -Discussion of care plans with patient, family, and/or surrogate decision makers -Discussion of patient's care with primary medical team, surgical team, and/or consulting service -Decision to obtain further radiologic evaluation, after consideration of the risk/benefit ratio -Review of most recent microbiology results assessment and modification of antimicrobial coverage -Discussion of patient's CODE STATUS and further advancement towards the ultimate goals of care. Plan outlined above discussed with patient/family, SLAB DEPILER OPERATOR, ICU team, and involved physician/consultants. Time of note may not correlate with time patient was seen. Mike Ordonez D.O. Jan 08, 2020 17:16
--- NOTE | 2020-01-08 18:00 | NUR ---
NURSE NOTES: Vital signs stable. No sign of acute distress. Will continue to monitor.
--- NOTE | 2020-01-08 19:15 | NUR ---
HAND-OFF: Report given to LANIE Doss. Vital signs stable.
--- NOTE | 2020-01-08 19:30 | NUR ---
NURSE NOTES: Received pt asleep but easily arousable to tactile stimulation , SR on the monitor, Bp stable, afebrile. No c/o any cP nor SOB, On RA 02 sat >95%, on semi fowlers position at this time. NS at 50ml/hr, infusing well per left upper arm. site atraumatic. Siderails up x3, call light within reach , bed alarms on. placed on fall precaution. instructed to call RN when in needing of any help. verbalized understanding.
--- NOTE | 2020-01-08 20:05 | NUR ---
CASE MANAGEMENT: REVIEW 44 YEAR OLD MALE WALKED INTO ED FROM HOME CC: CHEST PAIN . Hx [place] SI: SVT T 97.9 HR 191 RR 26 BP 107/75 SAT 99% ROOM AIR TROPONIN 0.236 TOX SCREEN + AMPHETAMINES IS: ADENOSINE 6MG IV X1 ADENOSINE 12MG IV X1 NS IVF BOLUS X1 DIGOXIN IV X1 AMIDATE IV X1 PATIENT ADMITTED TO ICU 01/07/2020 DCP: PATIENT IS FROM HOME
[2020-01-08] MEDS: Metoprolol Tartrate 50mg tab ORAL SCH (20:45)
[2020-01-08] MEDS: Atorvastatin 80mg tab ORAL SCH (20:45)
--- NOTE | 2020-01-08 21:13 | NUR ---
NURSE NOTES: Voiding well per urinal 400ml yellowish urine.
--- NOTE | 2020-01-08 21:30 | NUR ---
NURSE NOTES: Transfer to RM 220-1 via bed with vss. Report given to Zoey DELA CRUZ
--- NOTE | 2020-01-08 21:55 | NUR ---
INTER-FACILITY TRANSFER: Patient transferred to Rm 220-1, per Dr jey Shaver. Report given to Zoey. Patient transferred with valuables and medications. Belongings verified upon transferr and given to. Family/S.O. notified of transfer.
--- NOTE | 2020-01-08 22:00 | NUR ---
NURSE NOTES: PATIENT TRANSFERRED FROM ICU TO TELE ROOM 220 BED 1 VIA BED, ACCOMPANIED BY 2 NURSES. IV INTACT TO LEFT AC/GAUGE 18, IVF INFUSING WITHOUT DIFFICULTY, NO REDNESS/SWELLING NOTED TO SITE. PATIENT AWAKE, ALERT/ORIENTED X4, ABLE TO VERBALIZE NEEDS, DENIES PAIN. NO SIGNS AND SYMPTOMS OF ACUTE CARDIO RESPIRATORY DISTRESS/SHORTNESS OF BREATH, DENIES CHEST PAIN, SINUS RHYTHM ON REGULATORY PRODUCT MANAGER. NO COMPLAINTS OF GI DISCOMFORT, URINAL AT BEDSIDE. SIDE RAILS UP X2 FOR MOBILITY, BED IN LOWEST POSITION FOR SAFETY, ENCOURAGED PATIENT TO UTILIZE CALL LIGHT FOR ASSISTANCE, VERBALIZED UNDERSTANDING. NAD.
[2020-01-09] VITALS: BP 134/61
--- NOTE | 2020-01-09 00:45 | Consultation ---
DATE OF CONSULTATION: 01/08/2020 CARDIOLOGY CONSULTATION CONSULTING PHYSICIAN: Pee Burks M.D. REFERRING PHYSICIAN: Marissa Novoa M.D. REASON FOR CONSULTATION: Sustained supraventricular tachycardia and dfg-BP-yalvywzot myocardial infarction. HISTORY OF PRESENT ILLNESS: The patient is a 44-year-old gentleman with history of hypertension, prior myocardial infarction, and tachycardia in September, for which he was in outside facility, but no cardiac intervention was performed. He presented to emergency room for complaint of chest pain that started on Wednesday at 7:30 p.m. when he was at rest. The patient denies any alcohol or drug use. The patient was found to be in supraventricular tachycardia in the triage at a rate of 190 beats per minute. The patient was immediately evaluated by the emergency room physician and received adenosine 6 and 12 and 12 mg, but it did not affect him. The patient subsequently was sedated with etomidate and underwent synchronized cardioversion at 120 joules with successful cardioversion to sinus rhythm. The patient also had elevated troponin and abnormal EKG suggestive of inferolateral ischemia. At the time of my evaluation, the patient is in intensive care unit. Denies any chest pain or shortness of breath. REVIEW OF SYSTEMS: Negative other than what is mentioned in the history of present illness. PAST MEDICAL HISTORY: Include: 1. Hypertension. 2. Old myocardial infarction. 3. History of palpitation. SOCIAL HISTORY: He lives with his grandson. His urine-tox screen was positive for amphetamine. PHYSICAL EXAMINATION: VITAL SIGNS: Show blood pressure of 94/66, pulse of 66, respirations 18, and he is afebrile. HEAD AND NECK: Shows no JVD or carotid bruits. LUNGS: Clear. CARDIOVASCULAR: Shows regular S1 and S2 with no gallop or murmur. ABDOMEN: Soft. EXTREMITIES: No pitting edema. LABORATORY DATA: His labs show urine-tox screen positive for amphetamine. His troponins are 0.236, 0.188, and 0.134. Sodium 142, potassium 3.6, BUN of 13, creatinine 1, and glucose of 134. BNP is 919. White count is 10.8, hemoglobin of 17, hematocrit 48.7, and platelet count of 283,000. ASSESSMENT AND PLAN: 1. Sustained supraventricular tachycardia with heart rate of 190 beats per minute. The fact that this did not respond to high dose of adenosine makes me suspicious that it could be atrial tachycardia. I cannot exclude the possibility of AV-eder reentrant tachycardia or a bypass tract-mediated tachycardia; however, on the 12-lead EKG, he does not have any evidence of pre-excitation. His best option would be to proceed with electrophysiologic study and ablation for long-term management; however, that is not available in this facility and currently the patient does not have any insurance to transfer to contracted facility. 2. Wre-HM-fnoohuojd myocardial infarction with elevated troponin. The patient also has prior myocardial infarction per the patient. The EKG showed inferolateral ischemia, but I do not have any prior EKG to compare to see whether this is new or old. Elevated troponin could be secondary to sustained SVT as well as shock that he received. Currently, he does not have any chest pain. Continue medical therapy with aspirin, Lipitor, and metoprolol. Eventually, he would need cardiac catheterization as it was told that he had prior myocardial infarction in the past, but he never had cardiac catheterization, but that is also depending on whether the patient can be transferred to the [facility] as the patient has no insurance and the procedure is not available at [facility]. 3. Substance abuse with amphetamine. Strong abstinence was encouraged. 4. Hypertension. Keep the patient on metoprolol at this point in view of SVT as well as history of coronary artery disease and elevated troponin. Thank you very much, Dr. Novoa, for allowing me to participate in the care of this patient. Please do not hesitate to contact me if you have any questions regarding my evaluation. Pee Burks M.D. DR: MIKEY JOB#: [id number] CC:
[2020-01-09 04:00] VITALS: BP 93/66
[2020-01-09] MEDS: Heparin 5000 units/ml inj SUBQ SCH ×3 (06:48→22:00)
--- NOTE | 2020-01-09 06:48 | NUR ---
NURSE NOTES: DAILY WEIGHT 174.3-
[2020-01-09 07:18] LABS: EOSINOPHILS % (AUTO) 6.1 % (0.0-3.0); HEMATOCRIT 44.5 % (42.0-52.0); HEMOGLOBIN 15.9 G/DL (14.2-18.0); LYMPHOCYTES % (AUTO) 38.4 % (20.0-45.0); MEAN CORPUSCULAR VOLUME 91 FL (80-99); MONOCYTES % (AUTO) 7.9 % (1.0-10.0); NEUTROPHILS % (AUTO) 46.6 % (45.0-75.0); PLATELET COUNT 256 K/UL (150-450); RED BLOOD COUNT 4.91 M/UL (4.70-6.10); RED CELL DISTRIBUTION WIDTH 11.1 % (11.6-14.8); WHITE BLOOD COUNT 9.8 K/UL (4.8-10.8)
--- NOTE | 2020-01-09 07:30 | NUR ---
HAND-OFF: Report given to LANIE WEBB.
[2020-01-09 07:50] LABS: ANION GAP 10 mmol/L (5-15); BLOOD UREA NITROGEN 11 mg/dL (7-18); CALCIUM 8.9 MG/DL (8.5-10.1); CARBON DIOXIDE 24 MMOL/L (21-32); CHLORIDE 107 MMOL/L (98-107); CREATININE 0.8 MG/DL (0.55-1.30); POTASSIUM 4.8 MMOL/L (3.5-5.1); SODIUM 141 MMOL/L (136-145)
[2020-01-09 08:00] VITALS: BP 103/64
--- NOTE | 2020-01-09 08:05 | NUR ---
NURSE NOTES: received pt in the bed, awake, alert, oriented, vital signs stable, no co chest pain, no SOB, respiration regular, skin warm and dry to touch, intact, tolerate diet well, IV site on left AC patten, bed in low position, call light within reach
[2020-01-09] MEDS: Docusate 100mg cap ORAL SCH ×2 (09:36→21:00)
[2020-01-09] MEDS: Aspirin Baby 81mg ORAL SCH (09:36)
[2020-01-09] MEDS: Metoprolol Tartrate 50mg tab ORAL SCH (09:38)
--- NOTE | 2020-01-09 10:15 | Cardiac Electrophysiology PN ---
Assessment/Plan Assessment/Plan 1. Sustained supraventricular tachycardia with heart rate of 190 beats per minute. The fact that this did not respond to high dose of adenosine makes me suspicious that it could be atrial tachycardia. I cannot exclude the possibility of AV-eder reentrant tachycardia or a bypass tract-mediated tachycardia; however, on the 12-lead EKG, he does not have any evidence of pre-excitation. His best option would be to proceed with electrophysiologic study and ablation for long-term management; however, that is not available in this facility and currently the patient does not have any insurance to transfer to contracted facility. Will try to transfer to [facility] 2. Fkm-AS-kysbftpgj myocardial infarction with elevated troponin. The patient also has prior myocardial infarction per the patient. The EKG showed inferolateral ischemia, but I do not have any prior EKG to compare to see whether this is new or old. Elevated troponin could be secondary to sustained SVT as well as shock that he received. Currently, he does not have any chest pain. Continue medical therapy with aspirin, Lipitor, and metoprolol. Eventually, he would need cardiac catheterization as it was told that he had prior myocardial infarction in the past, but he never had cardiac catheterization, but that is also depending on whether the patient can be transferred to the [facility] facility as the patient has no insurance and the procedure is not available at [facility]. 3. Newly diagnosed Cardiomyopathy with EF 20%. Could be post [place] CMP or Tachy myopathy in view of recurrent sustained SVTs or nonischemic CMP due to substance abuse with Meth Will put on Coreg,Lisinopril, Lasix and Aldactone until cardiac cath is done 3. Substance abuse with amphetamine. Strong abstinence was encouraged. 4. Hypertension. Continue Coreg and Other CHF meds GENARO RN and healthcare consulting manager Subjective Subjective No more SVT. Echo showed EF 20% Objective Last 24 Hour Vital Signs Date Time Temp Pulse Resp B/P (MAP) Pulse Ox O2 Delivery O2 Flow Rate FiO2 01/09/20 09:38 81 103/64 01/09/20 09:37 81 01/09/20 08:00 96.8 81 20 103/64 (77) 98 01/09/20 06:31 66 01/09/20 04:00 97.2 58 20 93/66 (75) 95 01/09/20 00:00 87 01/09/20 00:00 98.4 80 18 134/61 (85) 94 01/08/20 21:00 72 18 110/63 (79) 97 01/08/20 20:45 75 105/62 01/08/20 20:00 Room Air 01/08/20 20:00 80 01/08/20 20:00 97.4 68 11 104/62 (76) 98 01/08/20 19:00 65 16 105/68 (80) 96 01/08/20 18:00 77 21 98/79 (85) 96 01/08/20 17:00 82 14 111/71 (84) 97 01/08/20 16:00 Room Air 01/08/20 16:00 97.6 71 13 101/68 (79) 97 01/08/20 16:00 78 01/08/20 15:00 73 14 108/56 (73) 97 01/08/20 14:00 87 19 111/69 (83) 97 01/08/20 13:00 97.7 68 17 108/67 (81) 97 01/08/20 12:29 21 01/08/20 12:00 Room Air 01/08/20 12:00 72 18 95/66 (76) 96 01/08/20 12:00 66 01/08/20 11:00 74 22 100/69 (79) 96 Intake and Output 01/08/20 01/09/20 19:00 07:00 Intake Total 1200 ml 560 ml Output Total 2200 ml 400 ml Balance -1000 ml 160 ml Intake Oral 600 ml 60 ml IV Total 600 ml 500 ml Output Urine Total 2200 ml 400 ml # Voids 1 # Bowel Movements 1 Laboratory Tests Test 01/08/20 12:57 01/08/20 19:05 01/09/20 01:00 01/09/20 06:45 Troponin I 0.213 ng/mL (0.000-0.056) 0.181 ng/mL (0.000-0.056) 0.161 ng/mL (0.000-0.056) White Blood Count 9.8 K/UL (4.8-10.8) Red Blood Count 4.91 M/UL (4.70-6.10) Hemoglobin 15.9 G/DL (14.2-18.0) Hematocrit 44.5 % (42.0-52.0) Mean Corpuscular Volume 91 FL (80-99) Mean Corpuscular Hemoglobin 32.4 PG (27.0-31.0) H Mean Corpuscular Hemoglobin Concent 35.8 G/DL (32.0-36.0) Red Cell Distribution Width 11.1 % (11.6-14.8) L Platelet Count 256 K/UL (150-450) Mean Platelet Volume 6.3 FL (6.5-10.1) L Neutrophils (%) (Auto) 46.6 % (45.0-75.0) Lymphocytes (%) (Auto) 38.4 % (20.0-45.0) Monocytes (%) (Auto) 7.9 % (1.0-10.0) Eosinophils (%) (Auto) 6.1 % (0.0-3.0) H Basophils (%) (Auto) 1.0 % (0.0-2.0) Test 01/09/20 07:00 Sodium Level 141 MMOL/L (136-145) Potassium Level 4.8 MMOL/L (3.5-5.1) Chloride Level 107 MMOL/L (98-107) Carbon Dioxide Level 24 MMOL/L (21-32) Anion Gap 10 mmol/L (5-15) Blood Urea Nitrogen 11 mg/dL (7-18) Creatinine 0.8 MG/DL (0.55-1.30) Estimat Glomerular Filtration Rate > 60 mL/min (>60) Glucose Level 99 MG/DL (74-106) Calcium Level 8.9 MG/DL (8.5-10.1) Phosphorus Level 3.0 MG/DL (2.5-4.9) Magnesium Level 1.6 MG/DL (1.8-2.4) L Troponin I 0.162 ng/mL (0.000-0.056) Objective HEAD AND NECK: No JVD or carotid bruits. LUNGS: Clear. CARDIOVASCULAR: Regular S1 and S2 with no gallop or murmur. ABDOMEN: Soft. EXTREMITIES: No pitting edema. Pee Burks MD Jan 09, 2020 10:15
[2020-01-09] MEDS ORDERED: Magnesium Sulfate 1gm/100ml IVPB SCH (11:00)
[2020-01-09] MEDS: Spironolactone 25mg tab ORAL SCH (11:14)
[2020-01-09 12:00] VITALS: BP 104/80
--- NOTE | 2020-01-09 13:19 | CDS Physician Query ---
Clarification is required for compliance, coding accuracy, and to reflect severity of illness for this patient Dear Dr. Pee Burks Date: 01/09/2020 Journalist/CDS Name: Christie Mason Clinical Documentation States: HNP: 44-year-old gentleman with history of hypertension... Chest x-ray showed pulmonary edema, mild...Sustained supraventricular tachycardia...Eyy-XM-[id number] myocardial infarction Cardio progress note: Newly diagnosed Cardiomyopathy with EF 20%. Could be post [place] CMP or Tachy myopathy in view of recurrent sustained SVTs or nonischemic CMP due to substance abuse with Meth Will put on Coreg,Lisinopril, Lasix and Aldactone until cardiac cath is done Please Clarify any possible diagnoses that apply to the above documentation/labs : [] Acute pulmonary edema without chf [] Acute systolic heart failure [] Acute on Chronic systolic heart failure [] Other: [] Unknown Present on Admission: [] Yes [] No [] Clinically Undetermined Physician signature Date Please also document in your Progress Notes and/or Discharge Summary and indicate if the condition was present on admission. MTDD
--- NOTE | 2020-01-09 14:52 | NUR ---
GREEN TIRE INSPECTOR NOTE SW was notified pt wants to meet w/ SW. SW met w/ pt and assessed his needs. Pt states he has court tomorrow at 8am. Pt does not recall his public welfare worker's name/contact information. JULIETTE provided [place] [facility] number [phone], [facility] courthouse [phone] and encouraged pt to find out his PD's information. Otherwise, pt plans to go AMA. JULIETTE will F/U as needed. Signed: 01/09/20 at 1454 by STANLEY SEGOVIA <Co-Signature Required>
[2020-01-09 16:00] VITALS: BP 108/56
[2020-01-09] MEDS ORDERED: traMADol 50mg tab ORAL PRN (16:15)
[2020-01-09] MEDS ORDERED: oxyCODONE 5mg IR tab ORAL PRN ×3 (16:15→16:30)
--- NOTE | 2020-01-09 17:05 | NUR ---
PRINCIPAL SYSTEM SOFTWARE ENGINEER NOTE JULIETTE met w/ pt to F/U w/ his concern. 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 Signed: 01/09/20 at 1706 by STANLEY SEGOVIA <Co-Signature Required>
--- NOTE | 2020-01-09 17:07 | NUR ---
WINDOW DISPLAY DESIGNER NOTES PT PLACED ON [facility] LIST FOR TRANSFER TO A HIGHER LEVEL OF CARE, VERIFIED RECEIPT. SPOKE WITH MARSHA FAX RECEIVED.
[2020-01-09] MEDS: Lisinopril 10mg tab ORAL SCH (17:45)
--- NOTE | 2020-01-09 19:37 | NUR ---
HAND-OFF: Report given to ROMAINE DELA CRUZ, NO DISTRESS AT THIS TIME..
--- NOTE | 2020-01-09 19:38 | NUR ---
NURSE NOTES: Received pt from LANIE Garcia. Pt awake and resting in bed in no acute distress. IV site intact. Bed locked in lowest position, call light within reach. Will continue with plan of care.
--- NOTE | 2020-01-09 19:50 | General Progress Note ---
Assessment/Plan Assessment/Plan: This is a 44-year-old male with a past medical history of [place] presenting with SVT status post cardioversion now in normal sinus rhythm. #Supraventricular tachycardia, unstable. Likely secondary to underlying CAD and amphetamine abuse. Status post cardioversion with return to normal sinus rhythm #Spectated coronary artery disease. EKG showing diffuse T wave inversions. No STEMI or NSTEMi per cardiology #History of [place] #Acute on chronic systolic heart failure exacerbation. New diagnosis -Appreciate cardiology consultation: Dr. Burks -Appreciate Pulm/Crit consultation: Dr. Conti -Patient will need cardiac cath. Currently evaluating options available given patient's lack of insurance -Aspirin -Statin -No heparin drip per cardiology -Formal 2D echocardiogram -NS 50 cc an hour -Telemetry -Lipid panel, A1c -Newly diagnosed Cardiomyopathy with EF 20%. Could be post [place] CMP or Tachy myopathy in view of recurrent sustained SVTs or nonischemic CMP due to substance abuse with Meth Will put on Coreg,Lisinopril, Lasix and Aldactone until cardiac cath is done #Amphetamine abuse -Social work consult -Appreciate psychiatry recommendations DVT ppx: Heparin SQ Code status: full 38 minutes spent on this encounter. Discussed with RN and Cardiology and case investigator. > 50% spent on counseling and care coordination. Time of note may not reflect time patient was seen. Subjective Date patient seen: Jan 09, 2020 Allergies: Coded Allergies: No Known Allergies (Unverified , 01/07/20) Subjective No acute events overnight per nursing. Heart rate 58-94. Asymptomatic. Denies any chest pain. Echo shows EF of 20%. Started on Lasix Aldactone lisinopril and Coreg per cardiology. Objective Last 24 Hour Vital Signs Date Time Temp Pulse Resp B/P (MAP) Pulse Ox O2 Delivery O2 Flow Rate FiO2 01/09/20 17:45 108/56 01/09/20 16:00 74 01/09/20 16:00 98.6 69 19 108/56 (73) 96 01/09/20 12:00 97.7 86 18 104/80 (88) 96 01/09/20 12:00 65 01/09/20 09:38 81 103/64 01/09/20 09:37 81 01/09/20 09:00 Room Air 01/09/20 08:00 67 01/09/20 08:00 96.8 81 20 103/64 (77) 98 01/09/20 06:31 66 01/09/20 04:00 97.2 58 20 93/66 (75) 95 01/09/20 00:00 87 01/09/20 00:00 98.4 80 18 134/61 (85) 94 01/08/20 21:00 72 18 110/63 (79) 97 01/08/20 20:45 75 105/62 01/08/20 20:00 Room Air 01/08/20 20:00 80 01/08/20 20:00 97.4 68 11 104/62 (76) 98 Intake and Output 01/08/20 01/09/20 19:00 07:00 Intake Total 1200 ml 610 ml Output Total 2200 ml 400 ml Balance -1000 ml 210 ml Intake Oral 600 ml 60 ml IV Total 600 ml 550 ml Output Urine Total 2200 ml 400 ml # Voids 1 # Bowel Movements 1 Laboratory Tests 01/09/20 01:00: Troponin I 0.161H 01/09/20 06:45: White Blood Count 9.8, Red Blood Count 4.91, Hemoglobin 15.9, Hematocrit 44.5, Mean Corpuscular Volume 91, Mean Corpuscular Hemoglobin 32.4H, Mean Corpuscular Hemoglobin Concent 35.8, Red Cell Distribution Width 11.1L, Platelet Count 256, Mean Platelet Volume 6.3L, Neutrophils (%) (Auto) 46.6, Lymphocytes (%) (Auto) 38.4, Monocytes (%) (Auto) 7.9, Eosinophils (%) (Auto) 6.1H, Basophils (%) (Auto ) 1.0 01/09/20 07:00: Troponin I 0.162H, Sodium Level 141, Potassium Level 4.8, Chloride Level 107, Carbon Dioxide Level 24, Anion Gap 10, Blood Urea Nitrogen 11, Creatinine 0.8, Estimat Glomerular Filtration Rate > 60, Glucose Level 99, Calcium Level 8.9, Phosphorus Level 3.0, Magnesium Level 1.6L 01/09/20 13:15: Troponin I 0.126H 01/09/20 19:05: Troponin I [Pending] Height (Feet): 5 Height (Inches): 8.00 Weight (Pounds): 174 Objective General: WDWN male in NAD, A&O x 4 HEENT: Normocephalic cephalic atraumatic, pupils equal round reactive to light and accommodation, nares patent and no symmetrical, no tonsillar exudates, mucous membranes moist CV: Regular rate regular rhythm, no murmurs, rubs, or gallops Pulm: Lungs clear to auscultation bilaterally. No wheezes, rhonchi, or rales GI: Soft, nontender, nondistended, bowel sounds present Neuro: CN 2-12 intact bilaterally, no focal signs. Ext: No lower extremity edema bilaterally Skin: no rashes lesions or ulcers Msk: Joints symmetrical in upper extremity and lower extremity bilaterally, no joint swelling. Lymph: No lymphadenopathy in upper extremity and lower extremity Mike Ordonez D.O. Jan 09, 2020 19:50
[2020-01-09 20:00] VITALS: BP 101/60
[2020-01-09] MEDS: Atorvastatin 80mg tab ORAL SCH (21:00)
[2020-01-10] VITALS: BP 98/68
[2020-01-10 04:00] VITALS: BP 99/54
[2020-01-10] MEDS: Heparin 5000 units/ml inj SUBQ SCH (06:00)
--- NOTE | 2020-01-10 07:29 | NUR ---
Report given to LANIE Corbin. Pt is awake and resting in bed in no acute distress, HOB elevated. Bed locked in lowest position, call light within reach. Endorsed plan of care.
--- NOTE | 2020-01-10 07:30 | NUR ---
NURSE NOTES: Received pt from TANA DELA CRUZ, Pt is awake and alert, pt is on RA, no SOB or acute respiratory distress noted. pt has intact iv access LAC 18G is running well. Pt is on continues heart monitoring. no complain of pain at this moment. pt is eating breakfast by observation. is on bed side. all needs attended, bed is locked and is in the lowest position, call light within easy reach. will continue to monitor.
[2020-01-10 07:36] LABS: EOSINOPHILS % (AUTO) 6.4 % (0.0-3.0); HEMOGLOBIN 15.8 G/DL (14.2-18.0); LYMPHOCYTES % (AUTO) 29.3 % (20.0-45.0); MEAN CORPUSCULAR VOLUME 92 FL (80-99); NEUTROPHILS % (AUTO) 53.3 % (45.0-75.0); PLATELET COUNT 268 K/UL (150-450); RED CELL DISTRIBUTION WIDTH 11.4 % (11.6-14.8); WHITE BLOOD COUNT 8.9 K/UL (4.8-10.8)
[2020-01-10 08:00] VITALS: BP 93/62
[2020-01-10 08:08] LABS: ANION GAP 8 mmol/L (5-15); BLOOD UREA NITROGEN 13 mg/dL (7-18); CALCIUM 8.7 MG/DL (8.5-10.1); CARBON DIOXIDE 26 MMOL/L (21-32); CHLORIDE 107 MMOL/L (98-107); CREATININE 0.9 MG/DL (0.55-1.30); PHOSPHORUS 3.3 MG/DL (2.5-4.9); SODIUM 141 MMOL/L (136-145)
[2020-01-10 09:00] VITALS: BP 93/62
[2020-01-10] MEDS: Lisinopril 10mg tab ORAL SCH (09:00)
[2020-01-10] MEDS: Spironolactone 25mg tab ORAL SCH (10:06)
[2020-01-10] MEDS: Aspirin Baby 81mg ORAL SCH (10:07)
[2020-01-10] MEDS: Docusate 100mg cap ORAL SCH (10:07)
--- NOTE | 2020-01-10 10:15 | NUR ---
SHOT PACKER NOTE Pt reports one of his friends is going to deliver message to the court. Pt does not share further concern/needs at this time. Signed: 01/10/20 at 1016 by STANLEY SEGOVIA <Co-Signature Required>
--- NOTE | 2020-01-10 11:25 | Cardiac Electrophysiology PN ---
Assessment/Plan Assessment/Plan 1. Sustained supraventricular tachycardia with heart rate of 190 beats per minute. The fact that this did not respond to high dose of adenosine makes me suspicious that it could be atrial tachycardia. I cannot exclude the possibility of AV-eder reentrant tachycardia or a bypass tract-mediated tachycardia; however, on the 12-lead EKG, he does not have any evidence of pre-excitation. His best option would be to proceed with electrophysiologic study and ablation for long-term management; however, that is not available in this facility and currently the patient does not have any insurance to transfer to contracted facility. Awaiting transfer to [facility] Signing AMA today 2. Flq-AE-bkajjgvnx myocardial infarction with elevated troponin. The patient also has prior myocardial infarction per the patient. The EKG showed inferolateral ischemia, but I do not have any prior EKG to compare to see whether this is new or old. Elevated troponin could be secondary to sustained SVT as well as shock that he received. Currently, he does not have any chest pain. Continue medical therapy with aspirin, Lipitor, and metoprolol. Eventually, he would need cardiac catheterization as it was told that he had prior myocardial infarction in the past, but he never had cardiac catheterization, but that is also depending on whether the patient can be transferred to the [facility] facility as the patient has no insurance and the procedure is not available at [facility]. 3. Newly diagnosed Cardiomyopathy with EF 20%. Could be post [place] CMP or Tachy myopathy in view of recurrent sustained SVTs or nonischemic CMP due to substance abuse with Meth Continue Coreg,Lisinopril, Lasix and Aldactone until cardiac cath is done 3. Substance abuse with amphetamine. Strong abstinence was encouraged. 4. Hypertension. Continue Coreg and Other CHF meds GENARO RN Patient signing AMA Subjective Subjective No more SVT. Echo showed EF 20%. Signing AMA. Objective Last 24 Hour Vital Signs Date Time Temp Pulse Resp B/P (MAP) Pulse Ox O2 Delivery O2 Flow Rate FiO2 01/10/20 10:06 67 01/10/20 09:00 93/62 01/10/20 09:00 67 93/62 01/10/20 08:00 96.3 67 20 93/62 (72) 96 01/10/20 04:00 65 01/10/20 04:00 97.9 20 99/54 (69) 94 01/10/20 00:00 56 01/10/20 00:00 97.9 56 20 98/68 (78) 95 01/09/20 21:00 91 118/64 01/09/20 21:00 Room Air 01/09/20 20:00 89 01/09/20 20:00 97.7 89 20 101/60 (74) 96 01/09/20 17:45 108/56 01/09/20 16:00 74 01/09/20 16:00 98.6 69 19 108/56 (73) 96 01/09/20 12:00 97.7 86 18 104/80 (88) 96 01/09/20 12:00 65 Intake and Output 01/09/20 01/10/20 19:00 07:00 Intake Total 690 ml Output Total 2200 ml Balance -1510 ml Intake Oral 140 ml IV Total 550 ml Output Urine Total 2200 ml # Voids 3 2 Laboratory Tests Test 01/09/20 13:15 01/09/20 19:05 01/10/20 07:05 Troponin I 0.126 ng/mL (0.000-0.056) 0.091 ng/mL (0.000-0.056) White Blood Count 8.9 K/UL (4.8-10.8) Red Blood Count 4.90 M/UL (4.70-6.10) Hemoglobin 15.8 G/DL (14.2-18.0) Hematocrit 45.0 % (42.0-52.0) Mean Corpuscular Volume 92 FL (80-99) Mean Corpuscular Hemoglobin 32.3 PG (27.0-31.0) H Mean Corpuscular Hemoglobin Concent 35.2 G/DL (32.0-36.0) Red Cell Distribution Width 11.4 % (11.6-14.8) L Platelet Count 268 K/UL (150-450) Mean Platelet Volume 6.8 FL (6.5-10.1) Neutrophils (%) (Auto) 53.3 % (45.0-75.0) Lymphocytes (%) (Auto) 29.3 % (20.0-45.0) Monocytes (%) (Auto) 10.0 % (1.0-10.0) Eosinophils (%) (Auto) 6.4 % (0.0-3.0) H Basophils (%) (Auto) 1.0 % (0.0-2.0) Sodium Level 141 MMOL/L (136-145) Potassium Level 4.0 MMOL/L (3.5-5.1) Chloride Level 107 MMOL/L (98-107) Carbon Dioxide Level 26 MMOL/L (21-32) Anion Gap 8 mmol/L (5-15) Blood Urea Nitrogen 13 mg/dL (7-18) Creatinine 0.9 MG/DL (0.55-1.30) Estimat Glomerular Filtration Rate > 60 mL/min (>60) Glucose Level 95 MG/DL (74-106) Calcium Level 8.7 MG/DL (8.5-10.1) Phosphorus Level 3.3 MG/DL (2.5-4.9) Magnesium Level 1.7 MG/DL (1.8-2.4) L Microbiology Date/Time Source Procedure Growth Status 01/07/20 22:20 Nasal Nares MRSA Culture - Final NO METHICILLIN RESISTANT STAPH AUREUS... Complete Objective HEAD AND NECK: No JVD or carotid bruits. LUNGS: Clear. CARDIOVASCULAR: Regular S1 and S2 with no gallop or murmur. ABDOMEN: Soft. EXTREMITIES: No pitting edema. Pee Burks MD Jan 10, 2020 11:25
[2020-01-10] MEDS ORDERED: ZESTRIL10 M1 ORAL (11:38)
[2020-01-10] MEDS ORDERED: COREG3.125 MG ORAL (11:38)
[2020-01-10] MEDS ORDERED: LIPITOR80 MG ORAL (11:38)
[2020-01-10] MEDS ORDERED: SPIRONOLACTONE25 MG ORAL (11:38)
[2020-01-10] MEDS ORDERED: ASPIRIN81 MG ORAL (11:38)
[2020-01-10] MEDS ORDERED: FUROSEMIDE40 MG ORAL (11:38)
--- NOTE | 2020-01-10 11:45 | NUR ---
NURSE NOTES: pt was very agitated and asked to go home and stated he has a court today and has to be there on time, , RN explained risks to pt but pt persist to sign AMA, Dr ESPINOZA is notified and was on bed side and explained the risks to pt but pt insisted to leave, Dr WALL is on bed side too. pt signed AMA, all belongings are with pt and signed belonging list by pt, iv access D/C, Dr ESPINOZA wrote prescription to pt but pt left with out taking prescription, is aware.
--- NOTE | 2020-01-10 23:00 | Discharge Summary ---
Discharge Summary Hospital Course Date of Admission Jan 07, 2020 at 21:35 Date of Discharge Jan 10, 2020 at 11:46 Admitting Diagnosis supraventricular tachycardia EDMUND Vang is a 44 year old male who was admitted on Jan 07, 2020 at 21: 35 for Supraventricular Tachycardia Consultations Cardiology, pulmonary and critical care Hospital Course This is a 44-year-old male with a past medical history of substance abuse ( amphetamines), reported history of PR, HTN, coronary artery disease (patient previously refused cardiac catheterization) who presented to the ER with chest pain. Symptoms began abruptly at 7:30 PM while he was at rest. Notes a tightness over the chest and shortness of breath. Denies loss of conscious. No diaphoresis, no vomiting. Was in his usual state of health prior to today. He has been compliant with his medications. Denies any alcohol or drug use. Patient found to be in supraventricular tachycardia on triage with a heart rate greater than 190. Patient arrived in narrow complex tachycardia with a heart rate greater than 190 consistent with SVT. Initial pressures were stable in the 110 systolic. Patient was given 6 then 12 then 12 mg of adenosine without effect. Heart rate was declining to the mid 90s. Patient was sedated with etomidate and underwent synchronized cardioversion at 120 J with successful conversion to sinus rhythm. Tolerated sedation well is now awake and alert. Chest pain is improving. Blood pressure improved. CBC unremarkable initial troponin 0.188, proBNP 919. Rest of CMP unremarkable. Chest x-ray showed pulmonary edema, mild. Medicine was consulted for admission. Patient was admitted to the ICU. Cardiology was consulted. No heparin GTT needed. TTE showed EF of 20%. Given risk factors and new CHF dx inpatient cardiac cath was recommended by cardiology. Patient placed on Coreg, Lisinopril, Lasix and Aldactone while awaiting insurance approval for cardiac cath. The patient remained in NSR while in the hospital. The patient then decided to leave AMA citing needing to meet a friend as his/her reason. I believe that the patient clearly had decision- making capacity to understand the risks of refusing care and leaving AGAINST MEDICAL ADVICE. I informed him about the consequences of leaving, including , permanent disability, and other possible unforeseen consequences. He understood these risks, but still refused to stay in the hospital. I invited the patient back if he changes his mind, or worsens in any way. I offered him the next best possible care including prescriptions but the patient left before receiving these prescriptions. The patient is alert and oriented x4, and I certainly do not feel that I can hold him against his will and force treatment upon him that he does not want. I tried my best to explain to him the potential serious consequences of leaving AMA, but he still refused to stay, and signed out AMA. Review of systems: Constitutional: Denies: chills, diaphoresis, fever, malaise, weakness, other HEENT: Denies: eye pain, blurred vision, tearing, double vision, ear pain, ear discharge, nose pain, nose congestion, throat pain, throat swelling, mouth pain , mouth swelling, Cardiovascular: Denies: chest pain, edema, lightheadedness, palpitations, syncope, Respiratory: Denies: cough, orthopnea, shortness of breath, SOB with excertion , SOB at rest, sputum, stridor, wheezing, other Gastrointestinal/Abdominal: Denies: abdomen distended, abdominal pain, black stools, tarry stools, blood in stool, constipated, diarrhea, difficulty swallowing, nausea, poor appetite, poor fluid intake, rectal bleeding, vomiting , other Genitourinary: Denies: burning, discharge, frequency, flank pain, hematuria, incontinence, pain, urgency, other Neurologic/Psychiatric: Denies: anxiety, depressed, emotional problems, headache, numbness, paresthesia, pre-existing deficit, seizure, tingling, tremors, weakness, other Endocrine: Denies: excessive sweating, flushing, intolerance to cold, intolerance to heat, increased hunger, increased thirst, increased urine, unexplained weight gain, unexplained weight loss, other MSK: denies joint pains, swelling, stiffness Hematologic/Lymphatic: Denies: anemia, easy bleeding, easy bruising, other Physical Exam General: WDWN male in NAD, A&O x 4 HEENT: Normocephalic cephalic atraumatic, pupils equal round reactive to light and accommodation, nares patent and no symmetrical, no tonsillar exudates, mucous membranes moist CV: Regular rate regular rhythm, no murmurs, rubs, or gallops Pulm: Lungs clear to auscultation bilaterally. No wheezes, rhonchi, or rales GI: Soft, nontender, nondistended, bowel sounds present Neuro: CN 2-12 intact bilaterally, no focal signs. Ext: No lower extremity edema bilaterally Skin: no rashes lesions or ulcers Msk: Joints symmetrical in upper extremity and lower extremity bilaterally, no joint swelling. Lymph: No lymphadenopathy in upper extremity and lower extremity #Supraventricular tachycardia, unstable. Likely secondary to underlying CAD and amphetamine abuse. Status post cardioversion with return to normal sinus rhythm #Spectated coronary artery disease. EKG showing diffuse T wave inversions. No STEMI or NSTEMi per cardiology #History of PR #Acute on chronic systolic heart failure exacerbation. New diagnosis -Appreciate cardiology consultation: Dr. Burks -Appreciate Pulm/Crit consultation: Dr. Conti -Patient will need cardiac cath. Currently evaluating options available given patient's lack of insurance -Aspirin -Statin -No heparin drip per cardiology -Formal 2D echocardiogram -NS 50 cc an hour -Telemetry -Lipid panel, A1c -Newly diagnosed Cardiomyopathy with EF 20%. Could be post PR CMP or Tachy myopathy in view of recurrent sustained SVTs or nonischemic CMP due to substance abuse with Meth Will put on Coreg,Lisinopril, Lasix and Aldactone until cardiac cath is done #Amphetamine abuse -Social work consult -Appreciate psychiatry recommendations DVT ppx: Heparin SQ Code status: full 38 minutes spent on this discharge. > 50% spent on counseling and care coordination. Time of note may not reflect time patient was seen. Discharge Condition Upon Discharge: other - AMA, guarded Discharge Vital Signs Last Vital Signs Date Time Temp Pulse Resp B/P (MAP) Pulse Ox O2 Delivery O2 Flow Rate FiO2 01/10/20 10:06 67 01/10/20 09:00 93/62 01/10/20 09:00 Room Air 01/10/20 08:00 96.3 20 96 01/08/20 12:29 21 Discharge Disposition Against medical advice Discharge Diagnoses: (1) SVT (supraventricular tachycardia) (2) Chest pain (3) Amphetamine abuse (4) NSTEMI (non-ST elevated myocardial infarction) (5) Tobacco use Mike Ordonez D.O. Jan 10, 2020 23:00
== END 2020-01-10 11:46 | disposition left against medical advice (07) | DRG 190 ==
LOC: EMR 20:45 → ICU 21:35 → EDBEDREQ 22:21 → 2E 01-08 21:51
DX: I21.4 Non-ST elevation (NSTEMI) myocardial infarction (principal); I50.23 Acute on chronic systolic (congestive) heart failure; I11.0 Hypertensive heart disease with heart failure; I42.9 Cardiomyopathy, unspecified; I47.1 Supraventricular tachycardia; I25.10 Atherosclerotic heart disease of native coronary artery without angina pectoris; F15.10 Other stimulant abuse, uncomplicated; I25.2 Old myocardial infarction; F17.200 Nicotine dependence, unspecified, uncomplicated
CPT/HCPCS: 36415; 71045; 80048; 80053; 80307; 81003; 82550; 82553; 83036; 83735; 83880; 84100; 84484; 85025; 85610; 85730; 87081; 92960; 93005; 93306; 96361; 96374; 96375; 99291; J7030; J8499